=== PATIENT | female | born 2000 | race Caucasian/White ===

== ENCOUNTER 2023-08-27 11:49 | Outpatient (CLI) | payer OTHER | END 2023-08-27 11:50 | disposition home or self-care (01) | LOC: CSHULT 11:49 | PROVIDERS: ATTEND Advanced Practice Midwife | DX: Z34.92 Encounter for supervision of normal pregnancy, unspecified, second trimester (principal); Z3A.20 20 weeks gestation of pregnancy | CPT/HCPCS: 76805 ==